=== PATIENT | female | born 1975 | race Caucasian/White ===

== ENCOUNTER 2017-11-07 11:30 | Emergency (ER) | payer OTHER ==
[~2017-11-07] VITALS: Ht 160 cm; Wt 244.0 kg
[~2017-11-07 11:30] MED LIST: ADVAIR 500-501 EACH INH; ALBUTEROL S5 MG/1 ML INH; ALBUTEROL2.5 MG/0.5 INH; DOXYCYCLINE HY100 MG PO; FLOVENT DISKU100 MCG INH; GUAIFENESIN-CO118 ML PO; HYDROCHLOROTH12.5 M1 PO; LEXAPRO20 MG PO; OMEPRAZOLE40 MG PO; POTASSIUM CHLO20 ME2 PO; PROPRANOLOL HCL10 MG PO; SIMVASTATIN10 MG PO; VITAMIN D35000 UNI1 PO
[2017-11-07] MEDS ORDERED: ZOLPIDEM TARTRAT5 MG PO (12:19)
[2017-11-07] MEDS ORDERED: BUSPIRONE HCL7.5 MG PO (12:20)
[2017-11-07] MEDS ORDERED: METFORMIN HCL500 M1 PO (12:20)
[2017-11-07] MEDS ORDERED: LINZESS145 MCG PO (12:20)
[2017-11-07] MEDS ORDERED: ATORVASTATIN CA40 MG PO (12:21)
[2017-11-07] MEDS ORDERED: LEVALBUTEROL TA15 GM (12:23)
[2017-11-07] MEDS ORDERED: GLIPIZIDE5 MG PO (12:24)
[2017-11-07] MEDS ORDERED: SUCRALFATE1 GM PO (12:25)
[2017-11-07] MEDS ORDERED: MACRODANTIN100 MG PO (13:34)
== END 2017-11-07 13:45 | disposition home or self-care (01) ==
LOC: ED 11:30
DX: N39.0 Urinary tract infection, site not specified (principal); E11.9 Type 2 diabetes mellitus without complications; J45.909 Unspecified asthma, uncomplicated; F41.9 Anxiety disorder, unspecified; I10 Essential (primary) hypertension; F17.200 Nicotine dependence, unspecified, uncomplicated; Z90.89 Acquired absence of other organs; Z88.1 Allergy status to other antibiotic agents; Z88.0 Allergy status to penicillin; Z88.8 Allergy status to other drugs, medicaments and biological substances; Z79.899 Other long term (current) drug therapy; Z79.84 Long term (current) use of oral hypoglycemic drugs
CPT/HCPCS: 80048; 81001; 85025; 99283